=== PATIENT | female | born 1985 | race Caucasian/White ===

== ENCOUNTER 2016-06-20 22:27 | Emergency (ER) | payer OTHER ==
[2016-06-20 22:38] VITALS: BP 128/75; PULSE 74; TEMP 98.3; BMI 24.9
--- NOTE | 2016-06-20 22:43 | PDOC ---
History of Present Illness - General Chief Complaint: Vaginal Bleeding Stated Complaint: VAGINAL BLEEDING Time Seen by Provider: 06/20/16 22:43 History Source: Patient - History of Present Illness Travel History: No Timing/Duration: reports: intermittent Pain Radiation: reports: no radiation Past History - Travel Traveled outside of the country in the last 30 days: No Close contact w/someone who was outside of country & ill: No - Past Medical History Allergies/Adverse Reactions: Allergies Allergy/AdvReac Type Severity Reaction Status Date / Time acetaminophen Allergy Severe Difficulty Verified 06/20/16 22:36 [From Tylenol Severe Allergy] Breathing Home Medications: Ambulatory Orders NK [No Known Home Medication] 06/20/16 Asthma: No Cancer: No Cardiac Disorders: No Diabetes: No HTN: No Seizures: No Other medical history: denies - Psycho/Social/Smoking Cessation Hx Anxiety: No Suicidal Ideation: No Smoking History: Never smoked Have you smoked in the past 12 months: No Hx Alcohol Use: No Drug/Substance Use Hx: No Substance Use Type: None Hx Substance Use Treatment: No Abd/GI Specific PMHX - Complaint Specific PMHX Colitis: No Diverticulitis: No Gall Bladder Disease: No Review of Systems - Review of Systems Able to Perform ROS?: Yes Comments:: 06/20/16 23:02 CONSTITUTIONAL: Absent: fever, chills, diaphoresis, generalized weakness, malaise, loss of appetite HEENT: Absent: rhinorrhea, nasal congestion, throat pain, throat swelling, difficulty swallowing, mouth swelling, ear pain, eye pain, visual Changes CARDIOVASCULAR: Absent: chest pain, loss of consciousness, palpitations, irregular heart rate, peripheral edema RESPIRATORY: Absent: cough, shortness of breath, dyspnea with exertion, orthopnea, wheezing, stridor, hemoptysis GASTROINTESTINAL: Absent: abdominal pain, abdominal distension, nausea, vomiting, diarrhea, constipation, melena, hematochezia GENITOURINARY: Absent: dysuria, frequency, urgency, hesitancy, hematuria, flank pain, genital pain MUSCULOSKELETAL: Absent: myalgia, arthralgia, joint swelling SKIN: Absent: rash, itching, pallor Is the patient limited Kinyarwanda proficient: No *Physical Exam - Vital Signs Last Vital Signs Temp Pulse Resp BP Pulse Ox 98.3 F 74 18 128/75 100 06/20/16 22:36 06/20/16 22:36 06/20/16 22:36 06/20/16 22:36 06/20/16 22:36 - Physical Exam Comments: 06/20/16 23:02 GENERAL: Well developed, well nourished. Awake and alert. No acute distress. HEENT: Normocephalic, atraumatic. PERRLA, EOMI. No conjunctival pallor. Sclera are non- icteric. Moist mucous membranes. Oropharynx is clear. NECK: Supple. Full ROM. No JVD. Carotid pulses 2+ and symmetric, without bruits. No thyromegaly. No lymphadenopathy. CARDIOVASCULAR: Regular rate and rhythm. No murmurs, rubs, or gallops. Distal pulses are 2+ and symmetric. PULMONARY: No evidence of respiratory distress. Lungs clear to auscultation bilaterally. No wheezing, rales or rhonchi. ABDOMINAL: Soft. Non-tender. Non-distended. No rebound or guarding. No organomegaly. Normoactive bowel sounds. MUSCULOSKELETAL Normal range of motion at all joints. No bony deformities or tenderness. No CVA tenderness. EXTREMITIES: No cyanosis. No clubbing. No edema. No calf tenderness. SKIN: Warm and dry. Normal capillary refill. No rashes. No jaundice. cervix: os;closed/smooth/neg lesions ED Treatment Course - LABORATORY CBC & Chemistry Diagram: 06/20/16 22:55 - RADIOLOGY Comments: single NONviable intragest preg 7 wks/4d Progress Note - Progress Note Progress Note: 31-year-old female presents to the emergency department complaining of vaginal spotting 30 minutes prior to her arrival to the emergency department. Patient states after voiding, she noticed a tinge amount of blood after wiping. She denies any abdominal pains, flank pains, urinary symptoms: Frequency/urgency /hematuria. Patient's first appointment to her pedal assembler will be tomorrow. CARPENTER MATE: Dr. Smith *DC/Admit/Observation/Transfer Diagnosis at time of Disposition: Missed - Discharge Dispostion Disposition: HOME Condition at time of disposition: Guarded - Referrals Referrals: Lei Haines MD [Staff Physician] - - Patient Instructions Printed Discharge Instructions: DI for Miscarriage Additional Instructions: MUST FOLLOW UP WITH YOUR ASSOCIATE PROFESSOR OF VIOLIN TOMORROW INCREASE FLUIDS PELVIC REST As explained, the images you had in the ER is just a preliminary report. The final report will be read and dictated within 24-48 hours Return back to the ER for severe/persistent or worseing syptoms. The following is your ultrasound/transvaginal study for from the emergency department. The exam demonstrates a single intrauterine gestation at approximately 7 weeks and 4 days on the basis of crown-rump length: 1.4 cm. No cardiac activity is identified consistent with embryonic demise. The ovaries appear unremarkable. No free intraperitoneal fluid is noted
[2016-06-20 23:06] LABS: BASOPHIL 0.9 % (0-2.0); MCH 31.1 pg (25.7-33.7); MCHC 34.3 g/dl (32.0-36.0); MEAN CELL VOLUME 90.9 fl (80-96); NEUTROPHILS 58.5 % (42.8-82.8); PLATELET COUNT 220 K/MM3 (134-434); RDW 13.9 % (11.6-15.6); WHITE BLOOD COUNT 7.7 K/mm3 (4.0-10.0)
[2016-06-20 23:07] LABS: URINE APPEARANCE CLEAR; URINE BILIRUBIN NEGATIVE (NEGATIVE); URINE COLOR COLORLESS; URINE GLUCOSE (UA) NEGATIVE (NEGATIVE); URINE KETONE NEGATIVE (NEGATIVE); URINE NITRITE NEGATIVE (NEGATIVE); URINE PROTEIN NEGATIVE (NEGATIVE); URINE UROBILINOGEN NEGATIVE E.U./dl (0.2-1.0)
[2016-06-20 23:08] LABS: URINE BLOOD 2+ (NEGATIVE); URINE LEUK ESTERASE 1+ (NEGATIVE)
[2016-06-20 23:10] LABS: URINE BACTERIA RARE /hpf (NONE SEEN); URINE RBC <1 /hpf (0-3); URINE WBC 3 /hpf (3-5)
--- NOTE | 2016-06-20 23:43 | PDOC ---
*Physical Exam - Vital Signs Last Vital Signs Temp Pulse Resp BP Pulse Ox 98.3 F 74 18 128/75 100 06/20/16 22:36 06/20/16 22:36 06/20/16 22:36 06/20/16 22:36 06/20/16 22:36 ED Treatment Course - LABORATORY CBC & Chemistry Diagram: 06/20/16 22:55 - ADDITIONAL ORDERS Additional order review: Laboratory Results 06/20/16 22:55 Urine Color Colorless Urine Appearance Clear Urine pH 7.0 Ur Specific [place] 1.008 Urine Protein Negative Urine Glucose (UA) Negative Urine Ketones Negative Urine Blood 2+ H Urine Nitrite Negative Urine Bilirubin Negative Urine Urobilinogen Negative Ur Leukocyte Esterase 1+ H Urine RBC <1 Urine WBC 3 Ur Epithelial Cells Rare Urine Bacteria Rare 06/20/16 22:55 RBC 4.27 MCV 90.9 MCHC 34.3 RDW 13.9 MPV 8.0 D Neutrophils % 58.5 D Lymphocytes % 26.1 D Monocytes % 6.5 Eosinophils % 8.0 H D Basophils % 0.9 Medical Decision Making - Medical Decision Making 06/20/16 23:43 agree with care from WERNER Banks *DC/Admit/Observation/Transfer Diagnosis at time of Disposition: Missed - Discharge Dispostion Disposition: HOME Condition at time of disposition: Guarded - Referrals Referrals: Lei Haines MD [Staff Physician] - - Patient Instructions Printed Discharge Instructions: DI for Miscarriage Additional Instructions: MUST FOLLOW UP WITH YOUR SISAL PICKER TOMORROW INCREASE FLUIDS PELVIC REST As explained, the images you had in the ER is just a preliminary report. The final report will be read and dictated within 24-48 hours Return back to the ER for severe/persistent or worseing syptoms. The following is your ultrasound/transvaginal study for from the emergency department. The exam demonstrates a single intrauterine gestation at approximately 7 weeks and 4 days on the basis of crown-rump length: 1.4 cm. No cardiac activity is identified consistent with embryonic demise. The ovaries appear unremarkable. No free intraperitoneal fluid is noted
== END 2016-06-21 01:01 | disposition home or self-care (01) ==
LOC: JER 22:27
DX: O02.1 Missed abortion (principal); Z3A.01 Less than 8 weeks gestation of pregnancy
CPT/HCPCS: 36415; 76817-TC; 81003; 81015; 84702; 85025; 99282-25

== ENCOUNTER 2021-08-01 21:38 | Emergency (ER) | payer OTHER ==
[2021-08-01 21:53] VITALS: BP 109/71; PULSE 91; TEMP 98.6
[2021-08-01] MEDS ORDERED: KETOROLAC TROMETHAMINE 30 MG/1 ML VIAL IM ONE (22:47)
[2021-08-01] MEDS ORDERED: MECLIZINE HCL 25 MG TABLET (FP) PO ONE (22:48)
[2021-08-01] MEDS ORDERED: KETOROLAC TROMETHAMINE 30 MG/1 ML VIAL ONE (22:50)
[2021-08-01] MEDS ORDERED: MECLIZINE HCL 25 MG TABLET (FP) ONE (22:51)
== END 2021-08-02 00:13 | disposition home or self-care (01) ==
LOC: JER 21:38
PROC: 3E0233Z Introduction of Anti-inflammatory into Muscle, Percutaneous Approach (ICD-10-PCS; principal; 2021-08-01)
DX: M26.601 Right temporomandibular joint disorder, unspecified (principal); R55 Syncope and collapse
CPT/HCPCS: 99284-25